=== PATIENT | male | born 1970 | race Caucasian/White ===

== ENCOUNTER 2018-08-26 02:53 | Emergency (ER) | payer SELFPAY ==
[~2018-08-26] VITALS: Ht 167.6 cm; Wt 77.1 kg
[2018-08-26 02:53] VITALS: BP 113/84
--- NOTE | 2018-08-26 02:53 | NUR ---
PT GRISELDA HUYNH, PREBOOK. TAKEN TO CHAIR D
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
--- NOTE | 2018-08-26 03:06 | NUR ---
Dr. Glass examining patient.
[2018-08-26 03:13] VITALS: BP 113/84
--- NOTE | 2018-08-26 03:13 | NUR ---
PATIENT [facility] [employer]. PATIENT EXAMINED BY . PATIENT MEDICALLY CLEARED AND RELEASED IN CUSTODY IN STABLE CONDITION. ORIGINAL PRE-BOOK FORM GIVEN TO OFFICER .
== END 2018-08-26 03:13 ==
LOC: MED 02:53
DX: Z02.89 Encounter for other administrative examinations (principal); V89.2XXA Person injured in unspecified motor-vehicle accident, traffic, initial encounter; Y93.89 Activity, other specified; Y92.89 Other specified places as the place of occurrence of the external cause; Y99.8 Other external cause status
CPT/HCPCS: 99283